=== PATIENT | male | born 1960 | race Caucasian/White ===

== ENCOUNTER 2017-03-05 14:53 | Outpatient (CLI) | payer BC ==
--- NOTE | 2017-03-05 16:01 | Diagnostic Imaging Report ---
Indication: Pain Comparison: None Findings: 3 views of the left foot were obtained. No acute fractures, malalignment, erosions or periostitis are identified. Soft tissues are unremarkable. Impression: No acute findings
== END 2017-03-05 16:53 | disposition home or self-care (01) ==
LOC: RAD 14:53
DX: M25.572 Pain in left ankle and joints of left foot (principal)